=== PATIENT | female | born 1960 | race Native Hawaiian/Other Pacific Islander ===

== ENCOUNTER 2017-02-07 09:16 | Outpatient (CLI) | payer OTHER | END 2017-02-07 10:30 | disposition home or self-care (01) | LOC: MAMMO 09:16 | DX: Z12.31 Encounter for screening mammogram for malignant neoplasm of breast (principal) ==

== ENCOUNTER 2018-02-11 09:22 | Outpatient (CLI) | payer OTHER | END 2018-02-11 19:56 | disposition home or self-care (01) | LOC: MAMMO 09:22 | DX: Z12.31 Encounter for screening mammogram for malignant neoplasm of breast (principal) ==

== ENCOUNTER 2019-02-13 09:26 | Outpatient (CLI) | payer OTHER | END 2019-02-13 20:35 | disposition home or self-care (01) | LOC: MAMMO 09:26 | DX: Z12.31 Encounter for screening mammogram for malignant neoplasm of breast (principal) ==